=== PATIENT | male | born 1970 | race Caucasian/White ===

== ENCOUNTER 2016-12-07 05:24 | Inpatient (IN) | payer MEDICAID ==
[2016-12-07] MEDS ORDERED: Acetaminophen 500 MG Tab PO ONE (06:00)
[2016-12-07] MEDS ORDERED: Gabapentin 300 MG Cap PO ONE (06:00)
[2016-12-07] MEDS ORDERED: Celecoxib 200 MG Cap PO ONE (06:00)
[2016-12-07] MEDS ORDERED: Scopolamine 1.5 MG Transdermal Patch TOP SCH (06:00)
[2016-12-07] MEDS ORDERED: Dextrose 5%-Lactated Ringers 1,000 ML IV SCH (06:00)
[2016-12-07] MEDS ORDERED: Rocuronium 50 MG/5 ML Vial ONE ×2 (07:03→08:42)
[2016-12-07] MEDS ORDERED: Propofol 200 MG/20 ML SDV ONE (07:03)
[2016-12-07] MEDS ORDERED: Succinylcholine 200 MG/10 ML MDV ONE (07:03)
[2016-12-07] MEDS ORDERED: Glycopyrrolate 0.2 MG/ML 5 ML MDV ONE (07:03)
[2016-12-07] MEDS ORDERED: Midazolam 1 MG/ML 2 ML SDV ONE (07:03)
[2016-12-07] MEDS ORDERED: Neostigmine Methylsulfate 1 MG/ML 5 ML Syringe ONE (07:03)
[2016-12-07] MEDS ORDERED: Ondansetron 4 MG/2 ML SDV ONE (07:03)
[2016-12-07] MEDS ORDERED: Dexamethasone 4 MG/ML SDV ONE (07:03)
[2016-12-07] MEDS ORDERED: cefOXitin 2 GM Vial ONE (07:13)
[2016-12-07] MEDS ORDERED: cefOXitin 2 GM in Sodium Chloride 0.9% 50 ML IV ONE (07:30)
[2016-12-07] MEDS ORDERED: Lidocaine 2% 100 MG/5 ML Syringe IVPUSH ONE (08:00)
[2016-12-07] MEDS ORDERED: Ketamine 500 MG/5 ML MDV IV ONE (08:00)
[2016-12-07] MEDS: Ropivacaine 60 ML, Dexamethasone 8 MG, EPINEPHrine 0.4 MG, Sodium Chloride 0.9% 17.6 ML NERVRT ONE ×8 (08:20→11:56)
[2016-12-07] MEDS ORDERED: hydrOXYzine HCl 100 MG/2 ML SDV IM ONE (10:23)
[2016-12-07] MEDS ORDERED: Insulin Aspart 100 Units/ML 3 ML Pen SUBCUT ONE (10:30)
[2016-12-07] MEDS ORDERED: Insulin Detemir 100 Units/ML 3 ML Pen SUBCUT ONE ×2 (10:45→21:00)
[2016-12-07] MEDS: Lidocaine 0.4%/D5W 2 GM/500 ML BAG IV SCH (11:55)
[2016-12-07] MEDS: HYDROmorphone 1 MG/ML Syringe IVPUSH PRN ×2 (12:22→15:13)
[2016-12-07] MEDS ORDERED: Glucagon,Human Recombinant 1 MG Vial IM PRN (12:30)
[2016-12-07] MEDS ORDERED: 50% Dextrose in Water 50 ML Syringe IVPUSH PRN (12:30)
[2016-12-07] MEDS ORDERED: diphenhydrAMINE 50 MG/ML SDV IVPUSH PRN (13:00)
[2016-12-07] MEDS ORDERED: Metoclopramide 10 MG/2 ML SDV IVPUSH PRN (13:00)
[2016-12-07] MEDS ORDERED: hydrOXYzine HCl 100 MG/2 ML SDV IM PRN (13:00)
[2016-12-07] MEDS ORDERED: Labetalol 20 MG/4 ML Syringe IVPUSH PRN (13:00)
[2016-12-07] MEDS ORDERED: Ondansetron 4 MG/2 ML SDV IVPUSH PRN (13:00)
[2016-12-07] MEDS: Pantoprazole 40 MG Vial IVPUSH SCH (13:27)
[2016-12-07] MEDS: cefOXitin 2 GM in Sodium Chloride 0.9% 50 ML IV SCH ×2 (13:27→19:13)
[2016-12-07] MEDS: VERIFY SCOP PATCH TOP SCH (13:28)
[2016-12-07] MEDS: MVI, Adult with Vitamin K 10 ML, Thiamine 200 MG, Chromium/Copper/Mang/Selen/Zn 1 ML in... IV SCH ×4 (15:16)
[2016-12-07] MEDS: Gabapentin 250 MG/5 ML Solution ML 470 ML Bottle PO SCH ×2 (15:54→21:26)
[2016-12-07] MEDS: Acetaminophen Soln 650 MG/20.3 ML UD Cup PO SCH ×2 (15:54→21:24)
[2016-12-07] MEDS: Insulin Aspart 100 Units/ML 3 ML Pen SUBCUT PRN ×2 (16:18→21:51)
[2016-12-07] MEDS: Heparin Sodium 5,000 Units/ML Vial SUBCUT SCH (17:37)
[2016-12-07] MEDS: metFORMIN 500 MG Tab PO SCH (17:37)
[2016-12-07] MEDS: Dextrose 5%-Lactated Ringers 1,000 ML IV SCH (21:57)
[2016-12-08] MEDS: Lidocaine 0.4%/D5W 2 GM/500 ML BAG IV SCH (00:13)
[2016-12-08] MEDS: cefOXitin 2 GM in Sodium Chloride 0.9% 50 ML IV SCH ×2 (02:24→07:28)
[2016-12-08] MEDS: Heparin Sodium 5,000 Units/ML Vial SUBCUT SCH ×3 (02:25→17:33)
[2016-12-08] MEDS: Acetaminophen Soln 650 MG/20.3 ML UD Cup PO SCH ×4 (03:24→22:00)
[2016-12-08] MEDS: Insulin Aspart 100 Units/ML 3 ML Pen SUBCUT PRN ×4 (04:11→22:00)
[2016-12-08] MEDS: Dextrose 5%-Lactated Ringers 1,000 ML IV SCH (04:25)
[2016-12-08] MEDS: Gabapentin 250 MG/5 ML Solution ML 470 ML Bottle PO SCH ×4 (05:23→22:04)
[2016-12-08] MEDS ORDERED: Dextrose 5%-Lactated Ringers 1,000 ML IV SCH (08:15)
[2016-12-08] MEDS: Celecoxib 200 MG Cap PO SCH (08:29)
[2016-12-08] MEDS: Insulin Detemir 100 Units/ML 3 ML Pen SUBCUT SCH ×2 (08:45→21:59)
[2016-12-08] MEDS: HYDROmorphone 1 MG/ML Syringe IVPUSH PRN ×2 (08:50→14:56)
[2016-12-08] MEDS: Methylphenidate 10 MG Tab PO SCH ×2 (08:59→22:14)
[2016-12-08] MEDS: metFORMIN 500 MG Tab PO SCH ×2 (09:00→17:33)
[2016-12-08] MEDS: VERIFY SCOP PATCH TOP SCH (09:02)
[2016-12-08] MEDS: Bisacodyl 5 MG Tab PO SCH ×2 (09:41→21:58)
[2016-12-08] MEDS: Losartan 50 MG Tab PO SCH (09:42)
[2016-12-08] MEDS: Hydrochlorothiazide 25 MG Tab PO SCH (09:44)
[2016-12-08] MEDS: Sertraline 50 MG Tab PO SCH (09:45)
[2016-12-08] MEDS: Pantoprazole 40 MG Vial IVPUSH SCH (13:38)
--- NOTE | 2016-12-08 14:41 | PN ---
DATE OF SERVICE: 12/08/2016 The patient has been afebrile with stable vital signs. Oral intake has been fairly good, and urine output has been satisfactory. The blood sugars are still running a little bit high. We will add Januvia to the equation along with metformin and then I will go with 15 units of Levemir b.i.d. assuming that and hopefully will begin backing down on the insulin doses after. Otherwise, we will start his usual medications and have him maximize activity and work with pulmonary toilet. Per Rocha MD /[id number]
[2016-12-08] MEDS: MVI, Adult with Vitamin K 10 ML, Thiamine 200 MG, Chromium/Copper/Mang/Selen/Zn 1 ML in... IV SCH ×4 (15:53)
[2016-12-09] MEDS: Heparin Sodium 5,000 Units/ML Vial SUBCUT SCH ×3 (01:59→18:11)
[2016-12-09] MEDS: Acetaminophen Soln 650 MG/20.3 ML UD Cup PO SCH (04:31)
[2016-12-09] MEDS: Gabapentin 250 MG/5 ML Solution ML 470 ML Bottle PO SCH ×4 (05:29→21:26)
[2016-12-09] MEDS: HYDROmorphone 1 MG/ML Syringe IVPUSH PRN (07:51)
[2016-12-09] MEDS ORDERED: SCOPOLAMINE PATCH ASK TOP ONE (08:00)
[2016-12-09] MEDS: Celecoxib 200 MG Cap PO SCH (08:10)
[2016-12-09] MEDS: metFORMIN 500 MG Tab PO SCH ×2 (08:12→16:17)
[2016-12-09] MEDS ORDERED: Acetaminophen 160 MG Tab,Disintegrating PO PRN (08:48)
[2016-12-09] MEDS ORDERED: Cyanocobalamin (Vitamin B12) 1,000 MCG/ML SDV IM ONE (09:00)
[2016-12-09] MEDS: Insulin Detemir 100 Units/ML 3 ML Pen SUBCUT SCH ×2 (09:07→21:58)
[2016-12-09] MEDS: Methylphenidate 10 MG Tab PO SCH ×2 (09:08→21:28)
[2016-12-09] MEDS: Bisacodyl 5 MG Tab PO SCH ×2 (09:12→21:26)
[2016-12-09] MEDS: Losartan 50 MG Tab PO SCH (09:13)
[2016-12-09] MEDS: VERIFY SCOP PATCH TOP SCH (09:17)
[2016-12-09] MEDS: Sertraline 50 MG Tab PO SCH (09:18)
[2016-12-09] MEDS: Hydrochlorothiazide 25 MG Tab PO SCH (09:18)
[2016-12-09] MEDS: Pantoprazole 40 MG Vial IVPUSH SCH (14:37)
[2016-12-09] MEDS: Acetaminophen Soln 650 MG/20.3 ML UD Cup PO PRN (21:28)
[2016-12-10] MEDS: Heparin Sodium 5,000 Units/ML Vial SUBCUT SCH ×3 (02:13→18:10)
[2016-12-10] MEDS: Gabapentin 250 MG/5 ML Solution ML 470 ML Bottle PO SCH ×4 (05:29→20:59)
[2016-12-10] MEDS: Celecoxib 200 MG Cap PO SCH (07:30)
[2016-12-10] MEDS: metFORMIN 500 MG Tab PO SCH ×2 (07:31→18:09)
[2016-12-10] MEDS: Losartan 50 MG Tab PO SCH (08:17)
[2016-12-10] MEDS: VERIFY SCOP PATCH TOP SCH (08:18)
[2016-12-10] MEDS: Methylphenidate 10 MG Tab PO SCH ×2 (08:47→20:53)
[2016-12-10] MEDS: Bisacodyl 5 MG Tab PO SCH ×2 (08:49→20:51)
[2016-12-10] MEDS: Sertraline 50 MG Tab PO SCH (08:50)
[2016-12-10] MEDS: Hydrochlorothiazide 25 MG Tab PO SCH (08:51)
--- NOTE | 2016-12-10 12:36 | PN ---
DATE OF SERVICE: 12/10/2016 The patient has been afebrile with stable vital signs. Oral intake remains fairly good, and the IV has been discontinued. He is having blood sugars in the low to mid 100s with the present regimen. Given this, I think we will hold on discharge today and see how he does off insulin all together. We will continue metformin and the Januvia. We will discharge him one way or another tomorrow. We will hold both the Levemir and NovoLog coverage for today and I have instructed the nurses to call if the blood sugars are above the 200 or so range. Per Rocha MD /[id number]
--- NOTE | 2016-12-10 12:45 | PN ---
DATE OF SERVICE: 12/09/2016 The patient has been afebrile with stable vital signs. Overall, oral intake was fairly good around 1800 mL, and we will saline lock his IV, although, current oral pain medications are working satisfactorily as well. Blood sugars are coming down with the last one being 194, and the blood sugar before that was 202. I think, at this point, we will continue the Januvia and metformin. We will back down on the Levemir dose to 10 units q.12 hours today and then saline lock his IV. He may be ready for discharge home tomorrow depending on whether or not we are satisfied with continued blood sugar control. Per Rocha MD /[id number]
[2016-12-10] MEDS: Acetaminophen Soln 650 MG/20.3 ML UD Cup PO PRN (20:53)
[2016-12-11] MEDS: Heparin Sodium 5,000 Units/ML Vial SUBCUT SCH ×2 (01:14→10:42)
[2016-12-11] MEDS: Gabapentin 250 MG/5 ML Solution ML 470 ML Bottle PO SCH ×2 (05:36→10:43)
[2016-12-11] MEDS: Celecoxib 200 MG Cap PO SCH (07:54)
[2016-12-11] MEDS: metFORMIN 500 MG Tab PO SCH (07:55)
--- NOTE | 2016-12-11 08:06 | CR ---
UGI wo KUB HISTORY: Gastric bypass, evaluate Leonidas-en-Y. COMPARISON: None FINDINGS: Contrast is in the small gastric remnant. Some of the proximal small bowel loops are dilate d slightly with oral contrast present. No extravasation of contrast. Surgical drain present.
[2016-12-11] MEDS ORDERED: Magnesium Hydroxide 400 MG/5 ML Susp 30 ML Cup PO PRN (08:15)
[2016-12-11] MEDS: Losartan 50 MG Tab PO SCH (09:37)
[2016-12-11] MEDS: Sertraline 50 MG Tab PO SCH (09:38)
[2016-12-11] MEDS: Bisacodyl 5 MG Tab PO SCH (09:38)
[2016-12-11] MEDS: Hydrochlorothiazide 25 MG Tab PO SCH (09:38)
[2016-12-11] MEDS: Insulin Detemir 100 Units/ML 3 ML Pen SUBCUT SCH (10:29)
[2016-12-11] MEDS: Methylphenidate 10 MG Tab PO SCH (10:41)
[2016-12-11] MEDS: VERIFY SCOP PATCH TOP SCH (10:42)
[2016-12-11 11:34] VITALS: BP 137/83
--- NOTE | 2016-12-12 08:29 | OR ---
DATE OF PROCEDURE: 12/07/2016 PREOPERATIVE DIAGNOSIS: Morbid obesity. POSTOPERATIVE DIAGNOSES: 1. Morbid obesity. 2. Marked hepatomegaly. 3. Immobile small bowel secondary to thickened mesentery, requiring a small bowel resection to facilitate mobility of jejunojejunostomy. 4. Large paraesophageal diaphragmatic hernia. 5. Mediastinal lipoma. OPERATIVE PROCEDURE: 1. Laparoscopic Leonidas-en-Y gastric bypass with long limb gastroenterostomy (58890). 2. Tariq-Cut needle liver biopsy (05778). 3. Small bowel resection to facilitate mobility of jejunojejunostomy (93916). 4. Repair of paraesophageal diaphragmatic hernia (97538). 5. Excision of mediastinal lipoma (88987). ANESTHESIA: General. INDICATION FOR PROCEDURE: This is a 46-year-old male presenting with longstanding morbid obesity and increasingly significant comorbidities. After preoperative evaluation and discussion, he wished to proceed with a gastric bypass procedure. Potential risks of the procedure including bleeding, infection, leaks from various GI tract closures, problems with bowel obstruction over time, as well as possibility of cardiopulmonary, septic, or hemorrhagic complications leading to were discussed, and the patient wishes to proceed. DETAILS OF PROCEDURE: The patient was taken to the operating room, and after general endotracheal anesthesia was induced, he was placed in a lithotomy position. With continuous ultrasound guidance, bilateral subcostal transversus abdominis plane blocks were placed without difficulty, and the abdomen was prepped and draped. At 15 cm inferior and 5 cm left of the xiphoid process, a transverse incision was made and peritoneal cavity entered under direct vision with Optiview trocar, inflated to 15 mmHg pressure with CO2. Laparoscope was reinserted. No underlying trocar site injuries were seen. At this point, 5 additional trocars were placed across the upper and mid abdomen, and general exploration was undertaken. The patient was noted to have marked hepatomegaly with liver volume being roughly 2 to 3 times normal and the liver grossly fatty infiltrated. Tariq- Cut needle biopsies were obtained from the left lobe of liver, and minimal bleeding from the biopsy sites was controlled with electrocautery. At this point, the omentum was divided in the midline up to the level of the transverse colon. This allowed identification of small bowel at the ligament of Treitz. The small bowel was then traced out 200 cm distal to that point, where it was divided transversely with a NICKY stapler. The small bowel was then traced out 150 cm. It was notable that the patient's small bowel mesentery was quite thickened, creating a fairly immobile small bowel. This would make positioning the Leonidas limb up to the area of the gastrostomy junction without significant tension somewhat problematic. Given this, roughly a 12 cm section of the end of the biliopancreatic limb was then excised by means of a NICKY stapler and the mesentery being divided with Harmonic scalpel. This would then allow the jejunojejunostomy to ride quite a bit higher up away from the root of the mesentery, making the Leonidas limb significantly more mobile. After this was completed and the small bowel removed, the [id number] enteroenterostomy was accomplished with internal firing of the Endo-NICKY 60 mm stapler. The common opening was then closed transversely with the same stapler, angles anastomosed, and the mesenteric defect approximated with some 0 Ethibond stitch, along with fibrin sealant. The Leonidas limb was then able to be mobilized up to the level of the gastroesophageal junction through an antecolic approach without significant tension. The liver was then retracted anteriorly. The patient noted to have a quite large paraesophageal diaphragmatic hernia. This contained a large amount of omentum within it. This was gradually reduced and the mediastinal lipoma, which was actually quite large in aggregate, roughly the size of a golf ball, was removed in a piecemeal manner and sent as separate specimen. Once the diaphragmatic hernia was reduced, the peritoneum overlying it was divided and reflected downward. An anterior repair of the diaphragmatic hernia was then accomplished with a series of 0 Ethibond sutures reinforced with PTFE pledgets. The gastrointestinal balloon catheter was then inflated to 15 mL and pulled up snugly against the EG junction. The gastric wall over the apex of the balloon was then marked with electrocautery and the balloon catheter deflated and pulled up from the esophagus. The lesser omental tissue was then divided adjacent to the gastric cardia and the pouch initiated with transverse firing of the NICKY stapler at the level of the cauterized samantha on the gastric cardia. This was then completed with 2 additional firings of NICKY stapler up to and through the angle of His. Upon completion of the pouch, both staple lines were noted to be intact. The anvil of a 25 mm EEA stapler was attached to [place] sump type tube. It was brought down through the mouth and taken out through a small opening in the gastric pouch, allowing the anvil likewise to be pulled down to within the gastric pouch. The divided end of the Leonidas limb was opened and the main body of the EEA stapler passed several centimeters into the lumen, united with the anvil, and the gastrojejunostomy was thus created. Upon removal of the stapler, double donuts of mucosa were noted within it. The small bowel was closed off with a vascular staple line. Gastrojejunostomy was reinforced with some 3-0 Vicryl seromuscular stitch, along with fibrin sealant. A leak test was accomplished with injection of 120 mL of air in the gastric pouch while submerged with cefoxitin-containing saline solution. One Anand-Richmond drain was then placed adjacent to the gastrojejunostomy up to the level of the splenic fossa, and at that point, the trocars were removed. The peritoneal cavity was deflated. Incisions were closed with some 4-0 Vicryl skin stitch and drain was affixed with some 2-0 silk stitch. The patient was taken to the recovery room in satisfactory condition. There were no evident complications. Per Rocha MD /[id number]
--- NOTE | 2016-12-12 10:41 | DISCH ---
FINAL DIAGNOSES: 1. Morbid obesity. 2. Marked hepatomegaly. 3. Large paraesophageal diaphragmatic hernia with mediastinal lipoma. 4. History of attention-deficit hyperactivity disorder. 5. History of depression. 6. History of hyperlipidemia. 7. History of treated hypothyroidism. 8. History of obstructive sleep apnea. 9. History of type 2 diabetes mellitus. OPERATIVE PROCEDURES: This was done on 12/07/2016: 1. Laparoscopic Leonidas-en-Y gastric bypass with long limb gastroenterostomy. 2. Tariq-Cut needle liver biopsy. 3. Small bowel resection to facilitate mobility of jejunojejunostomy. 4. Repair of paraesophageal diaphragmatic hernia with excision of mediastinal lipoma. HOSPITAL COURSE: This is a 46-year-old male presenting with longstanding morbid obesity and increasingly significant comorbidities. After preop evaluations and discussion, he wished to proceed with a gastric bypass procedure. This was done on the date of admission. He had a quite enlarged liver and also immobile small bowel mesentery secondary to fatty infiltration. This required small bowel resection to facilitate mobility of the jejunojejunostomy. Also he had a very large paraesophageal diaphragmatic hernia, roughly the size of a tennis ball, which was repaired, along with excision of the mediastinal lipoma. Postoperatively, the patient has actually been able to get off insulin with blood sugars in the last 24 hours being between 120 and 140. Presently, he is on, for the diabetic management, metformin 1000 mg b.i.d., as well as Januvia 100 mg daily, and he will be instructed to keep a list of his blood sugars over the next several days leading up to his followup appointment. He will be set up to see Stephanie Blackwood at [facility]3] on a week from today, i.e. on 12/18/2016. Otherwise, he will continue his usual medications. He is on Celebrex 200 mg daily, which he will continue postoperatively. While he is on that, we will have him continue the omeprazole, and once he is off the Celebrex, the omeprazole likely can be stopped. Otherwise, he will continue his usual medications. He was noted to have a slightly elevated TSH at 4.1 with our upper limit of normal being 3.9. As he loses weight, the thyroid replacement will likely be less in terms of his Synthroid dosing, so at this point, we will leave the present dose the same. He will be instructed to continue his Step 2 diet until the first appointment.
== END 2016-12-11 16:30 | disposition home or self-care (01) | DRG 403 ==
LOC: JP.SDSSCHI 05:24 → JP.SDS 05:24 → UNDOADMIN 05:24 → EDSTATUS 07:15 → JP.2SS 10:15 → JP.SDSSCHI 10:15 → JP.2SS 11:27
PROVIDERS: ADMIT Surgery; ATTEND Surgery
PROC: 0D164ZA Bypass Stomach to Jejunum, Percutaneous Endoscopic Approach (ICD-10-PCS; principal; 2016-12-07)
PROC: 0DB94ZX Excision of Duodenum, Percutaneous Endoscopic Approach, Diagnostic (ICD-10-PCS; principal; 2016-12-07)
PROC: 3E0T3BZ Introduction of Anesthetic Agent into Peripheral Nerves and Plexi, Percutaneous Approach (ICD-10-PCS; principal; 2016-12-07)
PROC: 0FB24ZX Excision of Left Lobe Liver, Percutaneous Endoscopic Approach, Diagnostic (ICD-10-PCS; principal; 2016-12-07)
PROC: 0WBC4ZX Excision of Mediastinum, Percutaneous Endoscopic Approach, Diagnostic (ICD-10-PCS; principal; 2016-12-07)
PROC: 0BQR4ZZ (ICD-10-PCS; principal; 2016-12-07)
PROC: 0BQS4ZZ (ICD-10-PCS; principal; 2016-12-07)
DX: E66.01 Morbid (severe) obesity due to excess calories (principal); K44.0 Diaphragmatic hernia with obstruction, without gangrene; Z68.42 Body mass index [BMI] 45.0-49.9, adult; R16.0 Hepatomegaly, not elsewhere classified; K59.8 Other specified functional intestinal disorders; D17.4 Benign lipomatous neoplasm of intrathoracic organs; E11.9 Type 2 diabetes mellitus without complications; Z79.4 Long term (current) use of insulin; E03.9 Hypothyroidism, unspecified; G47.33 Obstructive sleep apnea (adult) (pediatric); I10 Essential (primary) hypertension; E78.5 Hyperlipidemia, unspecified; K21.9 Gastro-esophageal reflux disease without esophagitis; F32.9 Major depressive disorder, single episode, unspecified; E55.9 Vitamin D deficiency, unspecified; K76.0 Fatty (change of) liver, not elsewhere classified; K92.89 Other specified diseases of the digestive system
CPT/HCPCS: 36415; 74240; 74240-26; 80053; 82962; 84443; 86850; 86900; 86901; 88304; 88307; 88313; A9270-GY; C9113; J0171; J0330; J0694; J1100; J1170; J1644; J2001; J2250; J2405; J2704; J2710; J2795; J3010; J3410; J3411; J3420; J7030; J7042; J7050